=== PATIENT | male | born 1985 | race Caucasian/White ===

== ENCOUNTER 2020-11-29 18:34 | Emergency (ER) | payer SELFPAY ==
--- NOTE | ~2020-11-29 | XR_ITS ---
EXAMINATION: XR foot RT min 3V, XR ankle RT min 3V EXAM DATE: 11/29/2020 19:10 INDICATION: Right foot pain after rolling foot and ankle today. Initial encounter. TECHNIQUE: Right foot dorsoplantar, lateral and oblique projections obtained and reviewed. Right ank le frontal, lateral and oblique projections obtained and reviewed. There is no prior study for paloma ash. FINDINGS: Right metatarsal bones unremarkable. The right ankle mortise appears intact. There are n o acute fractures or dislocations identified. There is no subcutaneous gas. There is soft tissue swe lling over the ankle laterally. There are no radiopaque foreign bodies. IMPRESSION: 1. Right foot, ankle exam without acute osseous findings. 2. Swelling. Reviewed, dictated and finalized at location A. IMPRESSION: 1. Right foot, ankle exam without acute osseous findings. 2. Swelling.
[2020-11-29 18:51] VITALS: BP 151/97; PULSE 82; RESP 18; TEMP 37.4; O2SAT 100
--- NOTE | 2020-11-29 18:54 | ED.LOWEXIN ---
HPI - Extremity Injury (Lower) General Chief Complaint: Extremity Injury, Lower Stated Complaint: right ankle Time Seen by Provider: 11/29/20 18:45 Source: patient and RN notes reviewed History of Present Illness HPI Narrative: Patient is a 35-year-old male who presents the urgent care with his mother with complaints of swelling and pain to the right foot and ankle. Patient states that he was at work with [employer] today carrying boxes and stepped out of the [employer] truck, rolling his right foot/ankle. Patient states that his Workmen's Comp. is sent him to our facility. Patient has been elevating and using crutches for weightbearing prior to his arrival. No other acute complaints or injuries. No acute distress noted. Patient and mother aware of the plan of care. Some parts of this dictation were generated by voice recognition software and may contain typographical and/or grammatical inaccuracies. Related Data Home Medications Medication Instructions Recorded Confirmed albuterol sulfate 2 puff INHALATION QID PRN 11/29/20 11/29/20 Allergies Allergy/AdvReac Type Severity Reaction Status Date / Time amoxicillin [From Augmentin] Allergy Rash Verified 11/29/20 19:05 clavulanic acid Allergy Rash Verified 11/29/20 19:04 [From Augmentin] Review of Systems Review of Systems: Narrative: CONSTITUTIONAL: Denies fever, chills, or sweats. EYES: Denies visual changes, redness, or discharge. ENT: Denies rhinorrhea, congestion, sore throat, or otalgia. CARDIOVASCULAR: Denies chest pain, palpitations, or edema. RESPIRATORY: Denies cough or dyspnea. GASTROINTESTINAL: Denies abdominal pain, nausea, vomiting, or diarrhea. GENITOURINARY: Denies dysuria or hematuria. SKIN: Denies rash or itching. MUSCULOSKELETAL: Reports of right foot and ankle pain and swelling NEUROLOGIC: Denies headache, numbness, or weakness. All other systems reviewed are negative, except as documented in HPI. PMFSH Comments At the time of my signature, I reviewed and agree with the nursing past medical, surgical, social, and family history. There is no relevant family history pertinent to the patient complaint. Exam Narrative: Exam Narrative: GENERAL: This is a well-nourished, well-developed patient, in no apparent distress. HEAD: normocephalic, atraumatic. EYES: PERRL. Sclera clear/white. Vision is grossly intact. EARS: External ears normal NOSE: External nose normal with no obvious nasal discharge, nares without redness, no rhinorrhea. THROAT: Mucous membranes moist NECK: Neck supple CARDIOVASCULAR: Regular rate and rhythm without murmurs, gallops, or rubs. RESPIRATORY: Clear to auscultation. Breath sounds equal bilaterally. No wheezes, rales, or rhonchi. SKIN: warm, intact with no suspicious lesions or rash, good texture and turgor. NEURO: awake, alert, and oriented to person, place and time. There were no obvious focal neurologic abnormalities. EXTREMITIES: Moderate edema mild ecchymosis noted to the lateral right malleolus with moderate tenderness. Range of motion not tested due to pain. Mild 1+ edema to the right dorsal foot with mild ecchymosis and moderate pain with palpation. Positive strong right pedal pulse with capillary refill less than 2 seconds. Course Vital Signs Vital signs: Vital Signs Temperature 99.4 F 11/29/20 18:51 Pulse Rate 82 11/29/20 18:51 Respiratory Rate 18 11/29/20 18:51 Blood Pressure 151/97 H 11/29/20 18:51 Pulse Oximetry 100 11/29/20 18:51 Temperature 99.4 F 11/29/20 18:51 Pulse Rate 82 11/29/20 18:51 Respiratory Rate 18 11/29/20 18:51 Blood Pressure 151/97 H 11/29/20 18:51 Pulse Oximetry 100 11/29/20 18:51 Reviewed?patient is informed that they may have pre-hypertension or hypertension based on a blood pressure reading in the department. I recommend the patient call the primary care provider listed on their discharge instructions or a physician of their choice this week to arrange follow-
== END 2020-11-29 19:22 | disposition home or self-care (01) ==
PROVIDERS: Emergency Provider Nurse Practitioner Family
DX: S93.401A Sprain of unspecified ligament of right ankle, initial encounter (principal); S96.911A Strain of unspecified muscle and tendon at ankle and foot level, right foot, initial encounter; X50.9XXA Other and unspecified overexertion or strenuous movements or postures, initial encounter; Y99.0 Civilian activity done for income or pay; J45.909 Unspecified asthma, uncomplicated
CPT/HCPCS: 73610; 73630; 99213; G0463